=== PATIENT | male | born 1955 | race Hispanic/Latino ===

== ENCOUNTER 2018-01-21 06:30 | Day surgery (SDC) | payer BC ==
[2018-01-16 11:50] VITALS: BMI 35.3
[2018-01-21 07:26] LABS: BASO # 0.04 K/mm3 (0.0-2.0); BASO % 0.7 % (0.0-3.0); EOS # 0.1 (0.0-0.7); GRAN # 3.12 (1.4-6.5); GRAN % 56.9 % (50.0-68.0); HEMOGLOBIN 12.1 g/dL (14.0-18.0); LYMPH # 1.7 (1.2-3.4); LYMPH % 31.3 % (22.0-35.0); MEAN CELL VOLUME 78.8 fl (80.0-105.0); MEAN CORPUSCULAR HEMOGLOBIN 25.9 pg (25.0-35.0); MEAN CORPUSCULAR HGB CONC 32.9 g/dl (31.0-37.0); MEAN PLATELET VOLUME 9.2 fl (7.0-11.0); MONO # 0.5 (0.1-0.6); MONO % 9.1 % (1.0-6.0); RBC 4.67 10^6/uL (3.5-6.1); RED CELL DISTRIBUTION WIDTH 16.3 % (11.5-14.5); WHITE BLOOD COUNT 5.5 10^3/ul (4.5-11.0)
[2018-01-21 07:40] LABS: INR 0.98 (0.93-1.08); PARTIAL THROMBOPLASTIN TIME 28.4 Seconds (25.1-36.5); PROTHROMBIN TIME 11.3 SECONDS (9.4-12.5)
[2018-01-21 07:46] LABS: BLOOD UREA NITROGEN 22 mg/dL (7-21); CALCIUM 9.1 mg/dL (8.4-10.5); GFR AFRICAN-AMERICAN > 60; GFR NON-AFRICAN AMERICAN > 60
[2018-01-21 08:01] VITALS: RESP 18
[2018-01-21] MEDS ORDERED: Lidocaine 2% Inj (20ml) ONE (08:39)
[2018-01-21] MEDS ORDERED: Iohexol 350mgl/ml 50 ML ONE (08:40)
[2018-01-21] MEDS ORDERED: Iodixanol 320 MG/ML 200 ML BOTTLE IV ONE (08:40)
[2018-01-21] MEDS ORDERED: Midazolam 2 MG/2 ML VIAL ONE ×2 (09:22→09:48)
[2018-01-21] MEDS ORDERED: Sodium Chloride 0.9% 1,000 ML IV SCH (10:30)
[2018-01-21 10:42] VITALS: TEMP 98.1
--- NOTE | 2018-01-21 11:18 | CARDCATH ---
PROCEDURE DATE: 01/21/2018 HISTORY: The patient is a 62-year-old male with multiple cardiac risk factors including a history of a stent in the past, who presents with an abnormal stress test as a preop clearance for his knee surgery. Because of this, a cardiac catheterization was recommended. PROCEDURE: Left heart catheterization with coronary arteriography and left ventriculogram. The right femoral artery was cannulated with a 6-Kisw[place]ili sheath. There were no complications. I performed moderate sedation, which included the presence of an independent trained observer that assisted in monitoring the patient's level of consciousness and physiologic status. After administration of Versed and fentanyl, my intra service time was 15 minutes. The findings on catheterization revealed a left ventricle that contracted normally. Estimated ejection fraction of 50-55%. His coronary anatomy revealed a right dominant circulation. The RCA revealed intimal irregularities without critical lesions, there was a patent stent in the midportion. The left main artery was unremarkable. The circumflex artery and obtuse marginal branches were free of significant disease. The LAD and diagonal vessels revealed intimal irregularities without significant stenoses. Angio-Seal was used to close the femoral artery site. The patient tolerated the procedure well. In summary, the procedure revealed a patent stent in the RCA and no critical lesions in his coronary tree. LV function is normal. Given these findings, we will discontinue the Plavix. His cardiac status is stable for his planned surgery. There are no cardiac contraindications to anesthesia. Dick Marie MD
[2018-01-21 13:21] VITALS: BP 123/46; PULSE 54; O2SAT 94
--- NOTE | 2018-01-21 17:12 | CARD ---
APPROVED REPORT EKG Measurement Heart [id number] <Conclusion> Normal sinus rhythm Normal ECG
== END 2018-01-21 16:10 | disposition home or self-care (01) ==
LOC: CATH 06:30
PROVIDERS: ATTEND Internal Medicine Cardiovascular Disease
DX: I25.10 Atherosclerotic heart disease of native coronary artery without angina pectoris (principal); I10 Essential (primary) hypertension; Z95.5 Presence of coronary angioplasty implant and graft
CPT/HCPCS: 36415; 80048; 85025; 85610; 85730; 86850; 86900; 93005; 93458; 99152; C1760; C1769; C2629; J1644; J2250; J3010; J7030; J7040; Q9966